=== PATIENT | male | born 1995 | race Two or more races ===

== ENCOUNTER 2017-01-19 09:42 | Emergency (ER) | payer OTHER ==
[~2017-01-19] VITALS: Ht 200.7 cm; Wt 148.0 kg
[~2017-01-19 09:42] MED LIST: ADDERALL20 MG; ADDERALL5 MG PO; ALBUTEROL1 GM MC; ALBUTEROL17 GM; AUGMENTIN875 MG PO; CIPRO HC OTIC S10 ML LEFT EAR; FLEXERIL10 MG PO; FLEXERIL5 MG PO; KEFLEX500 MG PO; MOTRIN600 MG PO; MOTRIN800 MG PO; NAPROSYN500 MG PO; NO HOME MEDS; NORCO 5/3251 TABLET PO; PROVENTIL,200 INHALA IH; PROVENTIL,VENTOL2 MG PO; SINGULAIR10 MG PO; TRAMADOL HCL50 MG PO; TYLENOL EXTRA500 MG PO; VICODIN,LORT1 TABLET; Vicodin,Lortab 5/500 PO; ZITHROMAX250 MG PO; ZOFRAN4 MG PO; ZOLOFT50 M1; ZOLOFT50 M1 PO; predniSONE PO
[2017-01-19] MEDS ORDERED: MOTRIN600 MG PO (11:17)
[2017-01-19 11:22] VITALS: BP 121/78
== END 2017-01-19 11:22 | disposition home or self-care (01) ==
LOC: EME 09:42
DX: S20.219A Contusion of unspecified front wall of thorax, initial encounter (principal); W01.0XXA Fall on same level from slipping, tripping and stumbling without subsequent striking against object, initial encounter; Z88.1 Allergy status to other antibiotic agents; Z88.8 Allergy status to other drugs, medicaments and biological substances; F17.200 Nicotine dependence, unspecified, uncomplicated
CPT/HCPCS: 71020; 99281; 99284

== ENCOUNTER 2017-02-09 21:29 | Emergency (ER) | payer SELFPAY ==
[~2017-02-09] VITALS: Ht 200.7 cm; Wt 150.0 kg
[2017-02-09] MEDS ORDERED: VALIUM5 MG PO (23:59)
[2017-02-09] MEDS ORDERED: MEDROL DOSEPAK4 MG PO (23:59)
[2017-02-09] MEDS ORDERED: PERCOCET 5/31 TABLET PO (23:59)
[2017-02-10 00:15] VITALS: BP 142/78
== END 2017-02-10 00:13 | disposition home or self-care (01) ==
LOC: EME 21:29
DX: S39.012A Strain of muscle, fascia and tendon of lower back, initial encounter (principal); X50.0XXA Overexertion from strenuous movement or load, initial encounter; J45.909 Unspecified asthma, uncomplicated; F17.200 Nicotine dependence, unspecified, uncomplicated; Z88.0 Allergy status to penicillin
CPT/HCPCS: 99281; 99284; J1885

== ENCOUNTER 2017-10-12 20:57 | Emergency (ER) | payer SELFPAY ==
[~2017-10-12] VITALS: Ht 205.7 cm; Wt 148.0 kg
[~2017-10-12 20:57] MED LIST changes: +MEDROL DOSEPAK4 MG PO; +PERCOCET 5/31 TABLET PO; +VALIUM5 MG PO
[2017-10-12 21:06] VITALS: BP 138/74
== END 2017-10-12 23:00 | disposition left against medical advice (07) ==
LOC: EME 20:57
DX: R55 Syncope and collapse (principal); Z53.21 Procedure and treatment not carried out due to patient leaving prior to being seen by health care provider

== ENCOUNTER 2017-11-01 09:47 | Emergency (ER) | payer SELFPAY ==
[~2017-11-01] VITALS: Ht 205.7 cm; Wt 154.5 kg
[2017-11-01 11:02] LABS: BASOPHIL (%) 0.2 % (0-1); EOSINOPHIL (%) 0 % (0-5); HEMATOCRIT 48.1 % (38.0-50.0); HEMOGLOBIN 16.3 G/DL (12.5-16.6); IMMATURE GRANULOCYTE (%) 0.4 % (0.0-0.7); LYMPHOCYTE (%) 14.1 % (15-42); LYMPHOCYTE COUNT 1.2 K/uL (1.0-2.8); MCH 29.4 PG (29.0-34.0); MCHC 33.9 G/DL (30.0-36.0); MCV 86.8 FL (86-99); MONOCYTE (%) 5.2 % (3-12); MONOCYTE COUNT 0.4 K/uL (0-0.8); NEUTROPHIL (%) 80.1 % (45-76); NEUTROPHIL COUNT 6.6 K/uL (1.8-6.4); PLATELET COUNT 293 K/uL (156-360); RBC DIS.WIDTH-CV 13.2 % (11.8-14.6); RBC DIS.WIDTH-SD 41.7 % (39-53); RED BLOOD COUNT 5.54 M/uL (4.00-5.50); WHITE BLOOD COUNT 8.3 K/uL (4.1-10.2)
[2017-11-01 11:19] LABS: CHLORIDE 106 mEq/L (99-109); POTASSIUM 4.4 mEq/L (3.7-5.4); SODIUM 138 mEq/L (136-147)
[2017-11-01 11:21] LABS: GLUCOSE 131 mg/dL (70-99)
[2017-11-01 11:25] LABS: CREATININE 0.8 mg/dL (0.6-1.3); GFR ESTIMATE (CALCULATED) > 59 mL/min/ (58.99-99999)
[2017-11-01 11:26] LABS: UREA NITROGEN (BUN) 14 mg/dL (9-23)
[2017-11-01] MEDS ORDERED: PREDNISONE50 MG PO (13:04)
[2017-11-01] MEDS ORDERED: PROVENTIL HFA6.7 GM IH (13:04)
[2017-11-01 13:09] VITALS: BP 138/76
== END 2017-11-01 13:10 | disposition home or self-care (01) ==
LOC: EME 09:47
PROVIDERS: Emergency Medicine
DX: J45.901 Unspecified asthma with (acute) exacerbation (principal); K21.9 Gastro-esophageal reflux disease without esophagitis; F17.200 Nicotine dependence, unspecified, uncomplicated; Z79.51 Long term (current) use of inhaled steroids; Z90.49 Acquired absence of other specified parts of digestive tract; Z88.0 Allergy status to penicillin; Z88.8 Allergy status to other drugs, medicaments and biological substances
CPT/HCPCS: 71045; 80048; 85025; 93005; 94640; 99281; 99284; J2930; J7512

== ENCOUNTER 2017-11-07 20:19 | Emergency (ER) | payer SELFPAY ==
[~2017-11-07] VITALS: Ht 205.7 cm; Wt 145.5 kg
[~2017-11-07 20:19] MED LIST changes: +PREDNISONE50 MG PO; +PROVENTIL HFA6.7 GM IH
[2017-11-07 22:30] VITALS: BP 149/87
== END 2017-11-07 22:30 | disposition home or self-care (01) ==
LOC: EME 20:19
DX: R07.81 Pleurodynia (principal); S50.862A Insect bite (nonvenomous) of left forearm, initial encounter; W57.XXXA Bitten or stung by nonvenomous insect and other nonvenomous arthropods, initial encounter; J45.909 Unspecified asthma, uncomplicated; Z88.0 Allergy status to penicillin; F17.200 Nicotine dependence, unspecified, uncomplicated
CPT/HCPCS: 71101; 99281; 99283; J1885

== ENCOUNTER 2018-02-01 18:41 | Emergency (ER) | payer SELFPAY ==
[~2018-02-01] VITALS: Ht 195.6 cm; Wt 145.1 kg
[2018-02-01 20:11] VITALS: BP 127/68
== END 2018-02-01 20:16 | disposition home or self-care (01) ==
LOC: EME 18:41
DX: R51 Headache (principal); H53.143 Visual discomfort, bilateral; R11.0 Nausea; K21.9 Gastro-esophageal reflux disease without esophagitis; J45.909 Unspecified asthma, uncomplicated; F17.200 Nicotine dependence, unspecified, uncomplicated; Z87.820 Personal history of traumatic brain injury; Z90.49 Acquired absence of other specified parts of digestive tract; Z88.0 Allergy status to penicillin; Z88.8 Allergy status to other drugs, medicaments and biological substances
CPT/HCPCS: 99281; 99284; J1885